=== PATIENT | female | born 1955 | race Caucasian/White ===

== ENCOUNTER → 2016-07-22 | Outpatient (CLI) | payer OTHER ==
[~2016-07-22] MED LIST: GADOBUTROL 10 ML VIAL IVP ONE
--- NOTE | 2016-07-22 13:56 | MR ---
MRI of the Brain/Orbits, Without and With Contrast, July 22, 2016 History: Probable meningioma adjacent to the right optic nerve. Follow up. Technique: Survey imaging of the entire brain was performed lysing pre- and postcontrast enhanced seq uences in multiple planes. Detail imaging of the orbits is also obtained prior to and after intraveno us administration of 5.5 mL Gadavist. Comparison examination: July 29, 2014. Findings: Again demonstrated is a smoothly-marginated 6.5 mm contrast-enhancing extra-axial lesion pr esent directly cephalad to the right optic nerve just proximal to the optic chiasm. This lesion demon strates enhancing dural tail along both the medial and lateral margins and has typical MR features of a meningioma, unchanged in size from previous study. No evidence of mass effect on the surrounding s tructures. The brain is otherwise unremarkable in appearance, with small scattered nonspecific foci of white mat ter hyperintensity in the frontal lobes bilaterally. The brain otherwise enhances normally. The crani ocervical junction and skull base are normal. Impression: Stable extra-axial 6.5 mm meningioma present in the right supraclinoid region directly ad jacent to the optic nerve proximal to the chiasm.
== END ==
LOC: FIMAGING 07:45
PROVIDERS: ATTEND Internal Medicine
DX: D32.9 Benign neoplasm of meninges, unspecified (principal)
CPT/HCPCS: A9585

== ENCOUNTER → 2017-03-09 | Outpatient (CLI) | payer OTHER | LOC: FIMAGING 08:15 | PROVIDERS: ATTEND Internal Medicine | DX: Z12.31 Encounter for screening mammogram for malignant neoplasm of breast (principal) | CPT/HCPCS: G0202 ==

== ENCOUNTER → 2017-04-05 | Outpatient (CLI) | payer OTHER | LOC: FIMAGING 13:42 | PROVIDERS: ATTEND Internal Medicine | DX: K59.00 Constipation, unspecified (principal) ==

== ENCOUNTER → 2017-04-08 | Outpatient (CLI) | payer OTHER | LOC: FIMAGING 10:25 | PROVIDERS: ATTEND Internal Medicine | DX: R10.9 Unspecified abdominal pain (principal); K59.00 Constipation, unspecified ==

== ENCOUNTER → 2018-02-22 | Outpatient (CLI) | payer OTHER | DX: Z12.31 Encounter for screening mammogram for malignant neoplasm of breast (principal) ==